=== PATIENT | male | born 1975 | race Caucasian/White ===

== ENCOUNTER 2017-01-03 20:06 | Inpatient (IN) | payer MEDICAID, OTHER ==
[~2017-01-03] VITALS: Ht 182.9 cm; Wt 76.2 kg
[2017-01-03] MEDS ORDERED: SODIUM CHLORIDE 0.9% 500 ML IV ONE (20:31)
[2017-01-03 20:57] LABS: BASOPHILS % 2.1 % (0.0-2.0); EOSINOPHILS % 3.7 % (0.0-5.0); MEAN CORPUSCULAR HEMOGLOBIN 17.6 pg (28.0-32.0); MEAN CORPUSCULAR VOLUME 57.6 fL (80.0-94.0); MONOCYTES % 7.6 % (2.0-8.0); NEUTROPHILS % 49.6 % (40.0-76.0); PLATELET 160 x1000/uL (130-400); RED BLOOD CELL COUNT 3.55 mill/uL (4.7-6.1); RED CELL DISTRIBUTION WIDTH 18.9 % (11.6-14.6)
[2017-01-03 21:00] LABS: HEMATOCRIT. 20.4 % (42.0-52.0); HEMOGLOBIN. 6.2 g/dL (14.0-18.0)
[2017-01-03] MEDS ORDERED: ONDANSETRON HCL 4MG/2ML VIAL IV PRN (21:00)
[2017-01-03] MEDS ORDERED: CLONIDINE 0.1MG TABLET PO PRN (21:00)
[2017-01-03] MEDS ORDERED: DIPHENHYDRAMINE 50MG/ML VIAL IV PRN (21:00)
[2017-01-03] MEDS ORDERED: ACETAMINOPHEN 325MG TABLET PO PRN (21:00)
[2017-01-03] MEDS ORDERED: HYDROCODONE/ACETAMINOPHEN 5/325MG TABLET PO PRN (21:00)
[2017-01-03] MEDS ORDERED: IPRATROPIUM/ALBUTEROL 0.5-3(2.5)MG/3ML NEB INH PRN (21:00)
[2017-01-03 21:04] LABS: PARTIAL THROMBOPLASTIN TIME 22.7 sec (23.4-31.0); PROTHROMBIN TIME 10.8 sec (9.4-11.6)
[2017-01-03 21:06] LABS: CARBON DIOXIDE 27 mEq/L (21-32); CHLORIDE 101 mEq/L (98-107)
[2017-01-03 21:12] LABS: TROPONIN I 0.06 ng/mL (0.00-0.04)
[2017-01-03 21:45] LABS: HAPTOGLOBIN 127 mg/dL (30-200); T4 FREE 0.65 ng/dL (0.76-1.46); TOTAL IRON BINDING CAPACITY 608 ug/dL (250-450)
[2017-01-03 21:47] LABS: PLATELET ESTIMATE NORMAL
[2017-01-03 21:58] LABS: CLARITY URINE CLEAR (CLEAR); COLOR URINE YELLOW (YELLOW); GLUCOSE URINE NEGATIVE (NEGATIVE); KETONES URINE NEGATIVE (NEGATIVE); LEUKOCYTE ESTERASE URINE NEGATIVE (NEGATIVE); NITRITE URINE NEGATIVE (NEGATIVE); OCCULT BLOOD URINE NEGATIVE (NEGATIVE); PH URINE 5.5 (4.5-8.0); PROTEIN URINE NEGATIVE (NEGATIVE); SPECIFIC GRAVITY URINE 1.011 (1.005-1.030); UROBILINOGEN URINE 0.2 E.U./dL (0.2-1.0)
[2017-01-03 22:10] VITALS: BP 118/41
[2017-01-03] MEDS: TEMAZEPAM 15MG CAPSULE PO PRN (23:35)
[2017-01-04] VITALS (25 sets, daily range): BP systolic 95–119; BP diastolic 41–100
[2017-01-04] MEDS: SODIUM CHLORIDE 0.9% 1,000 ML IV SCH ×2 (06:32→11:35)
[2017-01-04 07:27] LABS: BASOPHILS % 2.5 % (0.0-2.0); EOSINOPHILS % 5.8 % (0.0-5.0); HEMATOCRIT. 23.8 % (42.0-52.0); HEMOGLOBIN. 7.3 g/dL (14.0-18.0); LYMPHOCYTES % 34.8 % (20.0-50.0); MEAN CORPUSCULAR HEMOGLOBIN 19.5 pg (28.0-32.0); MEAN CORPUSCULAR VOLUME 63.4 fL (80.0-94.0); MEAN PLATELET VOLUME 8.9 fl (7.4-10.4); NEUTROPHILS % 45.9 % (40.0-76.0); PLATELET 125 x1000/uL (130-400); RED BLOOD CELL COUNT 3.75 mill/uL (4.7-6.1)
[2017-01-04 07:55] LABS: CHLORIDE 107 mEq/L (98-107)
[2017-01-04 08:06] LABS: CARBON DIOXIDE 27 mEq/L (21-32); HDL CHOLESTEROL 61 mg/dL (40-59); LDL CHOLESTEROL 75 mg/dL (5-100); T4 FREE 0.68 ng/dL (0.76-1.46)
[2017-01-04] MEDS ORDERED: PANTOPRAZOLE SODIUM 40 MG/VIAL IV SCH (09:00)
[2017-01-04] MEDS ORDERED: BISACODYL 5MG TABLET PO SCH ×3 (13:00→19:00)
[2017-01-04] MEDS ORDERED: METOCLOPRAMIDE HCL 10MG/2ML VIAL IV SCH ×3 (13:00→19:00)
[2017-01-04] MEDS: FERROUS SULFATE 325MG TABLET PO SCH ×2 (13:11→18:43)
[2017-01-04] MEDS: ASCORBIC ACID 500 MG TABLET PO SCH ×2 (13:11→20:31)
[2017-01-04] MEDS ORDERED: SORBITOL 70% SOLN 30ML PO SCH ×3 (14:00→20:00)
[2017-01-04 16:09] LABS: HEPATITIS B SURFACE ANTIGEN NEGATIVE
[2017-01-04 16:28] LABS: HEMOGLOBIN 8.3 g/dL (14.0-18.0)
[2017-01-04 16:37] LABS: HEPATITIS B CORE AB IGM NEGATIVE
[2017-01-04 16:39] LABS: HEPATITIS A AB IGM NEGATIVE (NEGATIVE)
[2017-01-04] MEDS: LEVOTHYROXINE SODIUM 25MCG TABLET PO SCH (22:00)
[2017-01-04] MEDS: PANTOPRAZOLE SODIUM 40 MG/VIAL IV SCH (22:39)
[2017-01-04] MEDS: TEMAZEPAM 15MG CAPSULE PO PRN (22:39)
[2017-01-05] VITALS: BP 102/54
[2017-01-05] MEDS ORDERED: SORBITOL 70% SOLN 30ML PO NR
[2017-01-05] MEDS: SODIUM CHLORIDE 0.9% 1,000 ML IV SCH ×3 (00:32→20:21)
[2017-01-05 04:00] VITALS: BP 114/70
[2017-01-05 06:20] LABS: INR 1.1; PROTHROMBIN TIME 11.4 sec (9.4-11.6)
[2017-01-05] MEDS: LEVOTHYROXINE SODIUM 25MCG TABLET PO SCH ×2 (06:36→14:14)
[2017-01-05 06:51] LABS: BASOPHILS % 1.8 % (0.0-2.0); EOSINOPHILS % 4.2 % (0.0-5.0); FERRITIN 7 ng/mL (22-322); HEMATOCRIT. 31.7 % (42.0-52.0); HEMOGLOBIN. 10.1 g/dL (14.0-18.0); LYMPHOCYTES % 33.2 % (20.0-50.0); MEAN CORPUSCULAR HEMOGLOBIN 21.4 pg (28.0-32.0); MEAN CORPUSCULAR VOLUME 67.4 fL (80.0-94.0); MONOCYTES % 9.7 % (2.0-8.0); NEUTROPHILS % 51.1 % (40.0-76.0); RED CELL DISTRIBUTION WIDTH 28.8 % (11.6-14.6)
[2017-01-05 07:27] LABS: CARBON DIOXIDE 25 mEq/L (21-32); CHLORIDE 109 mEq/L (98-107)
[2017-01-05] MEDS: FERROUS SULFATE 325MG TABLET PO SCH ×3 (07:50→17:49)
[2017-01-05 07:58] LABS: VITAMIN B12 SERUM 360 pg/mL (211-911)
[2017-01-05 08:00] VITALS: BP 117/77
[2017-01-05 08:02] LABS: FOLIC ACID (FOLATE) SERUM > 20.00 ng/mL (>5.38)
[2017-01-05] MEDS: ASCORBIC ACID 500 MG TABLET PO SCH ×2 (08:33→20:21)
[2017-01-05] MEDS: PANTOPRAZOLE SODIUM 40 MG/VIAL IV SCH ×2 (10:05→20:21)
[2017-01-05] MEDS ORDERED: SIMETHICONE 40 MG/0.6 ML 30ML ONE ×2 (11:58→16:59)
[2017-01-05] MEDS ORDERED: SODIUM CHLORIDE 0.9% 10ML VIAL ONE (11:58)
[2017-01-05 12:00] VITALS: BP 109/78
[2017-01-05] MEDS ORDERED: LEVOTHYROXINE SODIUM 100 MCG/ VIAL IV SCH (14:30)
[2017-01-05] MEDS ORDERED: FENTANYL CITRATE/PF 50MCG/ML 2ML VIAL ONE (16:59)
[2017-01-05] MEDS ORDERED: MIDAZOLAM HCL 5 MG/5 ML VIAL ONE (16:59)
[2017-01-05] MEDS ORDERED: FENTANYL CITRATE/PF 50MCG/ML 2ML VIAL IV PRN (17:24)
[2017-01-05] MEDS ORDERED: MIDAZOLAM HCL 5 MG/5 ML VIAL IV PRN (17:24)
[2017-01-05] MEDS ORDERED: DIAZEPAM 5 MG/ML 2ML CPJ ONE ×2 (17:29→17:41)
[2017-01-05] MEDS ORDERED: DIAZEPAM 5 MG/ML 2ML CPJ IV PRN (17:30)
[2017-01-05 20:00] VITALS: BP 107/65
[2017-01-06] VITALS: BP 91/48
[2017-01-06 04:00] VITALS: BP 96/51
[2017-01-06] MEDS: SODIUM CHLORIDE 0.9% 1,000 ML IV SCH (05:47)
[2017-01-06] MEDS: LEVOTHYROXINE SODIUM 25MCG TABLET PO SCH (06:57)
[2017-01-06 07:21] LABS: BASOPHILS % 1.1 % (0.0-2.0); EOSINOPHILS % 3.4 % (0.0-5.0); HEMATOCRIT. 30.1 % (42.0-52.0); HEMOGLOBIN. 9.4 g/dL (14.0-18.0); LYMPHOCYTES % 22.6 % (20.0-50.0); MEAN CORPUSCULAR HEMOGLOBIN 21.2 pg (28.0-32.0); MEAN CORPUSCULAR VOLUME 68.3 fL (80.0-94.0); NEUTROPHILS % 66.9 % (40.0-76.0); PLATELET 125 x1000/uL (130-400); RED BLOOD CELL COUNT 4.41 mill/uL (4.7-6.1); RED CELL DISTRIBUTION WIDTH 28.7 % (11.6-14.6)
[2017-01-06 08:00] VITALS: BP 105/73
[2017-01-06 08:34] LABS: CARBON DIOXIDE 24 mEq/L (21-32); CHLORIDE 110 mEq/L (98-107)
[2017-01-06] MEDS: FERROUS SULFATE 325MG TABLET PO SCH (08:45)
[2017-01-06] MEDS: ASCORBIC ACID 500 MG TABLET PO SCH (08:45)
[2017-01-06] MEDS: PANTOPRAZOLE SODIUM 40 MG/VIAL IV SCH (08:45)
[2017-01-06 10:31] LABS: PLATELET 130 x1000/uL (130-400)
[2017-01-06] MEDS ORDERED: HYDR-4001 PO (11:18)
[2017-01-06] MEDS ORDERED: ASCO500T20 PO (11:18)
[2017-01-06] MEDS ORDERED: FERR325T23 PO (11:18)
[2017-01-06] MEDS ORDERED: LEVO25TA7 PO (11:18)
[2017-01-06] MEDS ORDERED: OMEP20CA10 PO (11:18)
[2017-01-06 12:00] VITALS: BP 121/65
[2017-01-06 12:42] VITALS: BP 105/73
[2017-01-07 09:11] LABS: FOLICLE STIMULATING HORMONE 1.6 mIU/mL (1.5-12.4)
[2017-01-09 07:18] LABS: TESTOSTERONE FREE 7.8 pg/mL (6.8-21.5)
== END 2017-01-06 13:15 | disposition home or self-care (01) | DRG 253 ==
LOC: ER 20:31 → 6WST 20:39 → ENRESERV 20:53
PROVIDERS: ADMIT Internal Medicine; ATTEND Internal Medicine
PROC: 30233N1 Transfusion of Nonautologous Red Blood Cells into Peripheral Vein, Percutaneous Approach (ICD-10-PCS; 2017-01-04)
PROC: 0DB68ZX Excision of Stomach, Via Natural or Artificial Opening Endoscopic, Diagnostic (ICD-10-PCS; 2017-01-05)
PROC: 0DJD8ZZ Inspection of Lower Intestinal Tract, Via Natural or Artificial Opening Endoscopic (ICD-10-PCS; principal; 2017-01-05 15:00)
DX: K92.2 Gastrointestinal hemorrhage, unspecified (principal); J90 Pleural effusion, not elsewhere classified; D68.9 Coagulation defect, unspecified; D69.6 Thrombocytopenia, unspecified; E83.52 Hypercalcemia; I31.3 Pericardial effusion (noninflammatory); D50.0 Iron deficiency anemia secondary to blood loss (chronic); E03.9 Hypothyroidism, unspecified; I44.0 Atrioventricular block, first degree; I10 Essential (primary) hypertension; K29.60 Other gastritis without bleeding; K44.9 Diaphragmatic hernia without obstruction or gangrene; K59.00 Constipation, unspecified; K64.8 Other hemorrhoids; E05.90 Thyrotoxicosis, unspecified without thyrotoxic crisis or storm; Z79.899 Other long term (current) drug therapy; Z87.891 Personal history of nicotine dependence; Z80.42 Family history of malignant neoplasm of prostate; Z82.49 Family history of ischemic heart disease and other diseases of the circulatory system; Z83.3 Family history of diabetes mellitus
CPT/HCPCS: 36415; 71270; 74176; 80048; 80053; 80061; 81003; 82270; 82533; 82607; 82728; 82746; 83001; 83010; 83520; 83540; 83550; 83615; 83625; 83690; 84153; 84402; 84439; 84443; 84481; 84484; 85014; 85018; 85025; 85044; 85610; 85730; 86376; 86705; 86709; 86803; 86850; 86880; 86900; 86920; 87040; 87086; 87186; 87340; 88305; 88312; 88313; 93005; 93306; 99152; 99153; 99285; A4216; C9113; J2250; J2765; J3010; J3490; J7030; J7040; P9016

== ENCOUNTER 2018-11-15 13:33 | Emergency (ER) | payer MEDICAID ==
[~2018-11-15] VITALS: Ht 185.4 cm; Wt 78.0 kg
[~2018-11-15 13:33] MED LIST: ASCO500T20 PO; FERR325T23 PO; HYDR-4001 PO; LEVO25TA7 PO; OMEP20CA5 PO
[2018-11-16 00:19] LABS: BASOPHILS % 1.4 % (0.0-2.0); EOSINOPHILS % 4.7 % (0.0-5.0); HEMATOCRIT. 32.5 % (42.0-52.0); HEMOGLOBIN. 10.8 g/dL (14.0-18.0); LYMPHOCYTES % 37.9 % (20.0-50.0); MEAN CORPUSCULAR HEMOGLOBIN 28.6 pg (28.0-32.0); MEAN PLATELET VOLUME 10.5 fl (7.4-10.4); MONOCYTES % 11.7 % (2.0-8.0); NEUTROPHILS % 44.3 % (40.0-76.0); PLATELET 147 x1000/uL (130-400); RED BLOOD CELL COUNT 3.78 mill/uL (4.7-6.1); RED CELL DISTRIBUTION WIDTH 17.4 % (11.6-14.6)
[2018-11-16 00:22] LABS: CHLORIDE 106 mEq/L (98-107)
[2018-11-16 00:24] LABS: PROTHROMBIN TIME 10.7 sec (9.6-11.0)
[2018-11-16 03:27] VITALS: BP 107/70
== END 2018-11-16 03:28 | disposition home or self-care (01) ==
LOC: ER 13:33
DX: K92.2 Gastrointestinal hemorrhage, unspecified (principal); E05.90 Thyrotoxicosis, unspecified without thyrotoxic crisis or storm; F14.10 Cocaine abuse, uncomplicated; F12.10 Cannabis abuse, uncomplicated; F17.210 Nicotine dependence, cigarettes, uncomplicated
CPT/HCPCS: 36415; 86850; 86900; 99283

== ENCOUNTER → 2022-08-15 | Day surgery (SDC) | payer MEDICAID ==
[~2022-08-15] VITALS: Ht 185.4 cm; Wt 79.8 kg
[~2022-08-15] MED LIST changes: +BACITRACIN 15GM TUBE TOP ONE; +BUPIVACAINE HCL/PF 0.5% (5MG/ML) 10ML ONE; +CEFAZOLIN SODIUM 1000MG/VIAL ONE; +DEXAMETHASONE 4MG/ML 1ML VIAL ONE; +EPHEDRINE SULFATE 50MG/ML VIAL ONE; +ESCI10TA PO; +FENTANYL CITRATE/PF 50MCG/ML 2ML VIAL IV PRN; +FENTANYL CITRATE/PF 50MCG/ML 2ML VIAL ONE; +GLYCOPYRROLATE 0.2 MG/ML 2ML VIAL ONE; +HYDROMORPHONE HCL/PF 2MG/ML CPJ IV PRN; +KETOROLAC 30MG/ML VIAL ONE; +LACTATED RINGERS 1,000 ML IV SCH; +LIDOCAINE HCL 1% 20ML VIAL (Pyxis) INJ ONE; +LIDOCAINE HCL/EPINEPHRINE 1%-EPI 1:100,000 30 ML VIAL INFIL ONE; +MEPERIDINE HCL/PF 25MG/ML CPJ IV PRN; +MIDAZOLAM HCL 2 MG/2 ML VIAL ONE; +OMEP20CA14 PO; -OMEP20CA5 PO; +ONDANSETRON HCL 4MG/2ML INJ ONE; +PROPOFOL 200MG/20ML VIAL IV ONE
[2022-08-15 10:03] VITALS: BP 146/99
== END | disposition home or self-care (01) ==
LOC: OR 05:35
PROVIDERS: ATTEND Surgery
DX: K64.9 Unspecified hemorrhoids (principal); D64.9 Anemia, unspecified; Z79.899 Other long term (current) drug therapy; Z98.890 Other specified postprocedural states; Z20.822 Contact with and (suspected) exposure to COVID-19
CPT/HCPCS: 36415; 46947; 86850; 86900; 86901; 87426; 88304; C9803; J0690; J1100; J1885; J2250; J2405; J2704; J3010; J3490